=== PATIENT | male | born 1985 ===

== ENCOUNTER → 2018-04-15 | Day surgery (SDC) | payer OTHER | END | disposition home or self-care (01) | LOC: CIR.AMB 07:42 | DX: S63.591A Other specified sprain of right wrist, initial encounter (principal) ==

== ENCOUNTER 2020-11-16 09:07 | Outpatient (CLI) | payer OTHER | END 2020-11-16 09:22 | disposition home or self-care (01) | LOC: SONOGRAMA 09:07 | PROVIDERS: ATTEND Urology | DX: R97.20 Elevated prostate specific antigen [PSA] (principal) ==

== ENCOUNTER 2024-05-07 12:42 | Outpatient (CLI) | payer OTHER | END 2024-05-07 12:55 | disposition home or self-care (01) | LOC: RAD 12:42 | PROVIDERS: ATTEND Orthopaedic Surgery Hand Surgery | DX: S53.431A Radial collateral ligament sprain of right elbow, initial encounter (principal); S53.432A Radial collateral ligament sprain of left elbow, initial encounter ==